=== PATIENT | female | born 1960 | race African-American/Black ===

== ENCOUNTER 2021-02-09 15:19 | Emergency (ER) | payer OTHER, MEDICAID ==
[~2021-02-09] VITALS: Ht 170.2 cm; Wt 60.0 kg
[2021-02-09 17:15] VITALS: BP 102/58
== END 2021-02-09 17:34 | disposition home or self-care (01) ==
LOC: ER 15:19
DX: U07.1 COVID-19 (principal); J06.9 Acute upper respiratory infection, unspecified; I10 Essential (primary) hypertension; E11.9 Type 2 diabetes mellitus without complications
CPT/HCPCS: 93005; 99284; C9803; U0003; U0005